=== PATIENT | female | born 1975 | race Caucasian/White ===

== ENCOUNTER → 2024-03-02 16:53 | Outpatient (REF) | payer BC, MEDICAID, SELFPAY | LOC: CLAB 16:53 | PROVIDERS: ATTENDING PHYSICIAN Obstetrics & Gynecology | DX: Z01.419 Encounter for gynecological examination (general) (routine) without abnormal findings (principal); Z11.51 Encounter for screening for human papillomavirus (HPV) | CPT/HCPCS: 87624 ==

== ENCOUNTER → 2024-03-16 13:28 | Outpatient (REF) | payer BC, MEDICAID, SELFPAY | LOC: CPAP 13:28 | PROVIDERS: ATTENDING PHYSICIAN Obstetrics & Gynecology | DX: N93.9 Abnormal uterine and vaginal bleeding, unspecified (principal) | CPT/HCPCS: 88305 ==

== ENCOUNTER → 2024-04-07 17:39 | Outpatient (REF) | payer BC, MEDICAID, SELFPAY | LOC: RAD 17:39 | PROVIDERS: ATTENDING PHYSICIAN Obstetrics & Gynecology; FAMILY PHYSICIAN Physician Assistant | DX: N92.4 Excessive bleeding in the premenopausal period (principal) | CPT/HCPCS: 76830; 76856 ==

== ENCOUNTER 2024-05-05 06:21 | Day surgery (SDC) | payer BC, SELFPAY ==
[2024-05-03 12:58] VITALS: BMI 43.5
[2024-05-03 14:35] LABS: % Basophils 0.3 % (0-2); % Eosinophils 1.9 % (0-6); % Immature Granulocytes 0.5 % (0-0.5); % Lymphocytes 25.2 % (20.5-51.1); % Monocytes 9.9 % (1.7-9.3); % Neutrophils 62.2 % (42.2-75.2); Absolute Eosinophils 0.1 10^3/uL (0-0.7); Absolute Lymphocytes 1.6 10^3/uL (1.2-3.4); Absolute Monocytes 0.6 10^3/uL (0.1-0.6); Absolute Neutrophils 3.9 10^3/uL (1.4-6.5); Hematocrit 35.7 % (37.0-47.0); Hemoglobin 11.8 g/dL (12.0-16.0); Mean Corp Hgb Conc. 33.1 g/dL (33.0-37.0); Mean Corpuscular Hgb 27.3 pg (27.0-31.0); Mean Corpuscular Volume 82.4 fL (81.0-99.0); Mean Platelet Volume 11.5 fL (7.4-10.4); Nucleated Red Blood Cells % 0 %; Platelet Count 356 10^3/uL (130-400); Red Blood Cell Count 4.33 10^6/uL (4.20-5.40); White Blood Cell Count 6.3 10^3/uL (4.8-10.8)
[2024-05-03 14:42] LABS: INR 1.06; PT 13.8 Sec (11.4-14.6)
[2024-05-03 14:43] LABS: APTT 36.3 Sec (23.4-35.0)
[2024-05-05] VITALS (11 sets, daily range): BP systolic 142–168; BP diastolic 74–99; BMI 43.5
[2024-05-05] MEDS: DILAUDID 0.25 MG IV (12:51)
== END 2024-05-05 14:34 | disposition home or self-care (01) ==
LOC: SDS 06:21
PROVIDERS: ATTENDING PHYSICIAN Obstetrics & Gynecology; FAMILY PHYSICIAN Physician Assistant
DX: N92.0 Excessive and frequent menstruation with regular cycle (principal); N85.01 Benign endometrial hyperplasia
CPT/HCPCS: 58558; 88305; 36415; 85025; 85610; 85730

== ENCOUNTER → 2024-09-06 07:59 | Outpatient (REF) | payer BC, SELFPAY ==
[2024-09-06 09:14] LABS: % Basophils 0.2 % (0-2); % Eosinophils 2.2 % (0-6); % Immature Granulocytes 0.2 % (0-0.5); % Lymphocytes 24.4 % (20.5-51.1); % Monocytes 9.4 % (1.7-9.3); % Neutrophils 63.6 % (42.2-75.2); Absolute Eosinophils 0.1 10^3/uL (0-0.7); Absolute Lymphocytes 1.3 10^3/uL (1.2-3.4); Absolute Monocytes 0.5 10^3/uL (0.1-0.6); Absolute Neutrophils 3.4 10^3/uL (1.4-6.5); Hemoglobin 12.1 g/dL (12.0-16.0); Mean Corp Hgb Conc. 32.7 g/dL (33.0-37.0); Mean Corpuscular Hgb 27.9 pg (27.0-31.0); Mean Corpuscular Volume 85.5 fL (81.0-99.0); Mean Platelet Volume 10.1 fL (7.4-10.4); Platelet Count 335 10^3/uL (130-400); Red Blood Cell Count 4.33 10^6/uL (4.20-5.40); Red Cell Dist. Width 13.6 % (11.5-14.5); White Blood Cell Count 5.4 10^3/uL (4.8-10.8)
[2024-09-06 09:57] LABS: ALT (SGPT) 41 U/L (0-35); AST (SGOT) 31 U/L (14-36); Albumin 4.2 g/dl (3.5-5.0); Alkaline Phosphatase 86 U/L (38-126); Blood Urea Nitrogen 10 mg/dl (7-17); Calcium 10.2 mg/dl (8.4-10.2); Carbon Dioxide 25 mmol/L (22-30); Chloride 101 mmol/L (98-107); Glucose 96 mg/dl (70-99); HDL Cholesterol 62 mg/dl; LDL Cholesterol, Calculated 102 mg/dl; Potassium 4.5 mmol/L (3.5-5.1); Sodium 137 mmol/L (135-145); Total Bilirubin 0.3 mg/dl (0.2-1.3); Total Cholesterol 180 mg/dl (50-199); Total Protein 6.8 g/dl (6.3-8.2); Triglyceride 82 mg/dl (10-149); Uric Acid 5.1 mg/dl (2.5-6.2); Very Low Density Lipoprotein 16 mg/dl (0-30); eGFR > 60.00
[2024-09-06 10:27] LABS: TSH Reflex To Free T4 1.38 uIU/ml (0.47-4.68)
== END ==
LOC: OIDL 07:59
PROVIDERS: ATTENDING PHYSICIAN Physician Assistant
DX: M25.473 Effusion, unspecified ankle (principal); M25.571 Pain in right ankle and joints of right foot; R06.02 Shortness of breath; Z86.018 Personal history of other benign neoplasm
CPT/HCPCS: 36415; 80053; 80061; 84443; 84550; 85025

== ENCOUNTER 2024-12-20 06:29 | Day surgery (SDC) | payer BC, SELFPAY ==
[2024-12-08 08:53] LABS: % Basophils 0.2 % (0-2); % Eosinophils 2.1 % (0-6); % Immature Granulocytes 0.4 % (0-0.5); % Lymphocytes 26.8 % (20.5-51.1); % Monocytes 9.6 % (1.7-9.3); % Neutrophils 60.9 % (42.2-75.2); Absolute Eosinophils 0.1 10^3/uL (0-0.7); Absolute Lymphocytes 1.4 10^3/uL (1.2-3.4); Absolute Monocytes 0.5 10^3/uL (0.1-0.6); Absolute Neutrophils 3.2 10^3/uL (1.4-6.5); Hematocrit 38.5 % (37.0-47.0); Hemoglobin 12.2 g/dL (12.0-16.0); Mean Corp Hgb Conc. 31.7 g/dL (33.0-37.0); Mean Corpuscular Volume 85.2 fL (81.0-99.0); Mean Platelet Volume 10.8 fL (7.4-10.4); Nucleated Red Blood Cells % 0 %; Platelet Count 295 10^3/uL (130-400); Red Blood Cell Count 4.52 10^6/uL (4.20-5.40); Red Cell Dist. Width 13.9 % (11.5-14.5); White Blood Cell Count 5.3 10^3/uL (4.8-10.8)
[2024-12-08 09:30] LABS: Blood Urea Nitrogen 10 mg/dl (7-17); Calcium 10.2 mg/dl (8.4-10.2); Carbon Dioxide 25 mmol/L (22-30); Chloride 104 mmol/L (98-107); Glucose 104 mg/dl (70-99); Potassium 4.7 mmol/L (3.5-5.1); Sodium 135 mmol/L (135-145); eGFR > 60.00
[2024-12-08 09:38] LABS: Beta HCG Quantitative < 2.39 mIU/ml
[2024-12-08 14:10] VITALS: BMI 43.6
--- NOTE | 2024-12-09 14:31 | PTCARENOTE ---
Abnormal ECG 12/08/24, reviewed by Dr Arriaga, no further intervention requested.
[2024-12-20] VITALS (9 sets, daily range): BP systolic 116–152; BP diastolic 72–93; BMI 43.6; BMI 44.9
[2024-12-20] MEDS: HEPARIN 5000 UNITS SC (09:48)
[2024-12-20] MEDS: NORMOSOL-R/PLASMALYTE-A 1000 IV (10:01)
--- NOTE | 2024-12-20 13:43 | W.IMMPOSTOP ---
Surgical Immed Post Op Note
-
Primary Surgeon: Rhonda Patel DO
Wood Polisher: SHERRY Horan
Pre-op Diagnosis: Menorrhagia, Enlarged uterus
Post-op Diagnosis: Menorrhagia,omental adhesions (extensive), enlarged uterus, left ovary endometriosis, pelvic adhesions involving pelvic organs.
Procedure Performed: Robotic TLH left salpingectomy, extensive lysis adhesions, fulgeration of superficial endometriosis left ovary, cystoscopy.
Anesthesia Type: general ET Dr Garcia
Specimen / Cultures: uterus, cervix, left fallopian tube
Estimated Blood Loss: 20ml
Urine clear yellow
Complications: none
Operative Findings: Omental adhesions several centimeters below the umbilicus extending almost completely across the abdomen transversely.
Enlarged uterus approx 13 wk size with normal appearing left fallopian tube and absent right fallopian tube (prior salpingectomy with ectopic). Left ovary with some superficial hemosiderin deposits and clear cysts suspicious for endometriosis.
Adhesions involving right ovary to pelvic sidewall, involving a peritoneal inclusion cyst (3cm) and extending from right ovary to sigmoid colon. Adhesions involving lower uterine segment and bladder from prior csections.
Cystoscopy findings: Bilateral ureteral jets noted, normal appearing bladder. No evidence of injury, no foreign material. No lesions.
Counts correct times 2.
Stable to recovery.
[2024-12-20] MEDS: DILAUDID 0.5 MG IV (14:23)
[2024-12-20] MEDS: ROXICODONE 5 MG PO (15:15)
[2024-12-20] MEDS: TYLENOL 650 MG PO (15:16)
== END 2024-12-20 16:23 | disposition home or self-care (01) ==
LOC: SDS 06:29
PROVIDERS: ATTENDING PHYSICIAN Obstetrics & Gynecology; FAMILY PHYSICIAN Physician Assistant
DX: D25.1 Intramural leiomyoma of uterus (principal); N80.00 Endometriosis of the uterus, unspecified; N80.102 Endometriosis of left ovary, unspecified depth; N83.8 Other noninflammatory disorders of ovary, fallopian tube and broad ligament; N92.0 Excessive and frequent menstruation with regular cycle; N73.6 Female pelvic peritoneal adhesions (postinfective); K66.0 Peritoneal adhesions (postprocedural) (postinfection); N94.89 Other specified conditions associated with female genital organs and menstrual cycle
CPT/HCPCS: 58571; 58662; 88307; 36415; 80048; 84702; 85025; 86850; 86900; 86901; 93005

== ENCOUNTER → 2025-08-24 19:40 | Outpatient (REF) | payer BC, SELFPAY | LOC: WDC 19:40 | PROVIDERS: ATTENDING PHYSICIAN Obstetrics & Gynecology; FAMILY PHYSICIAN Physician Assistant | DX: Z12.31 Encounter for screening mammogram for malignant neoplasm of breast (principal) | CPT/HCPCS: 77063; 77067 ==

== ENCOUNTER → 2025-09-19 09:21 | Outpatient (REF) | payer BC, SELFPAY | LOC: WDC 09:21 | PROVIDERS: ATTENDING PHYSICIAN Obstetrics & Gynecology; FAMILY PHYSICIAN Physician Assistant | DX: R92.8 Other abnormal and inconclusive findings on diagnostic imaging of breast (principal) | CPT/HCPCS: 76642 ==